=== PATIENT | female | born 1985 | race Caucasian/White ===

== ENCOUNTER 2016-09-20 15:08 | Inpatient (IN) | payer MEDICAID ==
[2016-09-20] MEDS ORDERED: ONDANSETRON HCL/PF 2 MG/ML VIAL IV PRN ×2 (15:13→15:35)
[2016-09-20] MEDS ORDERED: LIDOCAINE HCL 50 ML VIAL PERI PRN (15:13)
[2016-09-20] MEDS ORDERED: OXYTOCIN/DEXTROSE 5%-WATER 30 UNITS/500 ML BAG IV ONE ×2 (15:13→18:30)
[2016-09-20] MEDS ORDERED: DEXTROSE 5%-LACTATED RINGERS 1,000 ML IV PRN (15:13)
[2016-09-20] MEDS ORDERED: RINGER'S SOLUTION,LACTATED 1,000 ML IV ONE (15:13)
[2016-09-20] MEDS ORDERED: BUPIVACAINE HCL/0.9 % NACL/PF 250 ML EP PRN (15:35)
[2016-09-20] MEDS ORDERED: NALOXONE HCL 1 MG/1 ML SYRG IV PRN (15:35)
[2016-09-20] MEDS ORDERED: BUPIVACAINE HCL/PF 30 ML VIAL EP SCH (15:45)
--- NOTE | 2016-09-20 15:59 | OR ---
Anesthesia Procedure Note - Anesthesia Procedure Note Date of Service: 09/20/16 Narrative: Vital Signs - Last Taken Temp 36.2 C L 09/20/16 15:40 Pulse 113 H 09/20/16 15:40 Resp 18 09/20/16 15:40 BP 130/68 09/20/16 15:40 Pulse Ox 97 09/20/16 15:40 09/20/16 15:58 ANESTHESIA PROCEDURE NOTE Date of Procedure: 09/20/2016. Time of procedure: 1535. Performed by: Oliverio Calixto CRNA Manager Voice: None. Preprocedure diagnosis: Active labor. Post procedure diagnosis: Same. Procedure: Insertion of labor epidural. Indications: The patient is a 30 -year-old female in active labor requesting labor epidural for pain management. Findings: See below. Details of the procedure: The patient was placed in a sitting position. DuraPrep as well as Betadine swabs 3 was applied to the patient's back. Patient was then draped in a sterile fashion. Lidocaine 1% was infiltrated to the skin and subcutaneous tissues at the level of the L3-4 interspace. The epidural space was identified using a 18-gauge Tuohy needle with loss-of- resistance technique. Epidural catheter was inserted to a depth of 12 centimeters at skin. Negative test dose was elicited using 3 mL of 1.5% preservative-free lidocaine plus epinephrine 1 200,000. The epidural catheter was then taped and secured in place. A loading dose of 8 mL of 0.25% preservative-free bupivacaine was administered to the epidural catheter after negative aspiration for blood and CSF. EBL: Minimal. Fluids: N/A. Specimen: N/A. Post procedure condition: The patient tolerated the procedure well. No complications were noted. Thank you for this consultation. Oliverio Calixto CRNA
[2016-09-20 16:47] LABS: Cocaine Ur Negative (NEGATIVE); Urine Barbiturate Negative (NEGATIVE); Urine Benzodiazepines Negative (NEGATIVE); Urine Opiates Negative (NEGATIVE); Urine PCP Negative (NEGATIVE); Urine THC Negative (NEGATIVE)
[2016-09-20] MEDS ORDERED: SENNOSIDES 8.6 MG TABLET PO PRN (18:30)
[2016-09-20] MEDS ORDERED: BISACODYL 10 MG SUPP.RECT RC PRN (18:30)
[2016-09-20] MEDS ORDERED: HYDROCORTISONE 30 APPL TUBE TP PRN (18:30)
[2016-09-20] MEDS ORDERED: GLYCERIN/WITCH HAZEL LEAF 40 APPL BOX TP PRN (18:30)
[2016-09-20] MEDS ORDERED: BENZOCAINE/MENTHOL 81 SPRAY CAN TP PRN (18:30)
[2016-09-20] MEDS ORDERED: oxyCODONE HCL/ACETAMINOPHEN 1 TAB TABLET PO PRN (18:30)
--- NOTE | 2016-09-20 18:31 | OR ---
Operative Report - Dictated Report Narrative: Spontaneous vaginal delivery of viable male at 1813 on 09/20/2016 with Apgars 8 and 9, weighing 2970 g in MALAIKA position. Cord clamping delayed approximately 1 minute Placenta delivered complete, intact, with three vessel cord Estimated blood loss: less than 50 ml Lacerations: None History for MU Definition: * The number of deliveries resulting in a live the patient experienced prior to current hospitalization * The previous delivery of live twins or any live multiple gestation is considered one live event. *If primagravida or nulliparous is documented select zero for the number of previous live births. Live Events: 3
[2016-09-20] MEDS: IBUPROFEN 800 MG TABLET PO PRN (18:52)
[2016-09-20] MEDS: oxyCODONE HCL/ACETAMINOPHEN 1 TAB TABLET PO PRN ×2 (19:17→22:24)
[2016-09-20] MEDS ORDERED: CALCIUM CARBONATE 500 MG TAB.CHEW PO PRN (20:09)
[2016-09-20] MEDS: DOCUSATE SODIUM 100 MG CAPSULE PO SCH (20:42)
[2016-09-21] MEDS: oxyCODONE HCL/ACETAMINOPHEN 1 TAB TABLET PO PRN ×5 (01:42→21:07)
[2016-09-21] MEDS: IBUPROFEN 800 MG TABLET PO PRN ×4 (01:42→21:06)
[2016-09-21] MEDS: DOCUSATE SODIUM 100 MG CAPSULE PO SCH ×2 (08:37→21:06)
--- NOTE | 2016-09-21 18:04 | PN ---
Progess Note - Interim Narrative: 09/21/16 18:04 Patient denies complaints. Lochia wnl Abdomen - soft, nontender Uterus - firm, at umbilicus - 1 No calf tenderness Impression: day #1 - s/p spontaneous vaginal delivery. Plan: Continue routine care
[2016-09-22] MEDS: oxyCODONE HCL/ACETAMINOPHEN 1 TAB TABLET PO PRN ×5 (00:45→14:59)
[2016-09-22] MEDS: IBUPROFEN 800 MG TABLET PO PRN ×2 (04:49→10:59)
[2016-09-22 07:16] VITALS: BP 106/67
--- NOTE | 2016-09-22 07:16 | PN ---
Subjective - Date and Time Seen Date: 09/22/16 Time: 07:13 Objective - Vitals Vitals: Last Vital Signs Temp 35.6 C L 09/21/16 21:25 Pulse 82 09/21/16 21:25 Resp 18 09/21/16 21:25 BP 118/66 09/21/16 21:25 Pulse Ox 97 09/21/16 21:25 Patient complains of symphysis pubic pain with walking about a 4 out of 10 on the pain scale, otherwise no complaints. Lochia wnl Abdomen - soft, nontender Uterus - firm, at umbilicus - 2 No calf tenderness Impression: day #2 - s/p spontaneous vaginal delivery. Plan: Routine discharge instructions Cauti Physician Documentation - Urinary Catheter Management Urethral (Gómez) Date of Insertion: 09/20/16 Time of Insertion: 16:13
[2016-09-22] MEDS: DOCUSATE SODIUM 100 MG CAPSULE PO SCH (08:36)
== END 2016-09-22 15:15 | disposition home or self-care (01) | DRG 775 ==
LOC: OB 15:08 → MS 09-21 22:12
PROVIDERS: ADMIT Obstetrics & Gynecology; ATTEND Obstetrics & Gynecology
PROC: 10E0XZZ Delivery of Products of Conception, External Approach (ICD-10-PCS; principal; 2016-09-20)
PROC: 4A1HXCZ Monitoring of Products of Conception, Cardiac Rate, External Approach (ICD-10-PCS; 2016-09-20)
PROC: 00HU33Z Insertion of Infusion Device into Spinal Canal, Percutaneous Approach (ICD-10-PCS; 2016-09-20)
DX: O80 Encounter for full-term uncomplicated delivery (principal); J45.909 Unspecified asthma, uncomplicated; F12.90 Cannabis use, unspecified, uncomplicated; Z3A.38 38 weeks gestation of pregnancy; Z37.0 Single live birth